=== PATIENT | male | born 1975 | race Caucasian/White ===

== ENCOUNTER 2016-08-22 09:54 | Day surgery (SDC) ==
[2016-08-22] MEDS ORDERED: LR 1,000 ML ONE ×2 (10:43→15:45)
[2016-08-22] MEDS ORDERED: KEFZOL 2 GM/D5W 50 ML ONE (10:44)
[2016-08-22] MEDS ORDERED: DEMEROL ONE (11:52)
[2016-08-22] MEDS ORDERED: PEPCID ONE (11:52)
[2016-08-22] MEDS ORDERED: REGLAN ONE (11:52)
[2016-08-22] MEDS ORDERED: DIPRIVAN 1% ONE (15:22)
[2016-08-22] MEDS ORDERED: XYLOCAINE-MPF 2% ONE (15:23)
[2016-08-22] MEDS ORDERED: ZOFRAN ONE (15:23)
[2016-08-22] MEDS ORDERED: DECADRON ONE (15:23)
[2016-08-22] MEDS: MORPHINE ONE ×2 (15:44→15:49)
[2016-08-22] MEDS ORDERED: PERCOCET-5 ONE (16:10)
[2016-08-22] MEDS ORDERED: PHENERGAN ONE (16:10)
[2016-08-22] MEDS ORDERED: PYRIDIUM ONE ×2 (16:20→16:22)
[2016-08-22 16:41] VITALS: BP 129/92
--- NOTE | 2016-08-25 10:00 | Diag Imaging Result Document ---
PROCEDURE NAME: FLUROSCOPY CYSTO - 08/22/2016 RETROGRADE PYELOGRAM 13 IMAGES: FINDINGS: There is placement of a left ureteral stent by Dr. Smalls. There is evidently a proximal ureteral stone which was removed during the procedure. No contrast was administered. IMPRESSION: Left ureteral stent placement.
--- NOTE | 2016-08-31 19:09 | OPERATIVE NOTE ---
PROCEDURE DATE: 08/22/2016 SURGEON: Rd Smalls MD PREOPERATIVE DIAGNOSES: 1. Left ureteral stone. 2. Hydronephrosis. 3. Flank pain. PRIMARY PROCEDURES: 1. Cystoscopy. 2. Left ureteroscopy. 3. Laser lithotripsy. 4. Stone basket extraction. 5. Placement of 6-Anguillan x 26 cm ureteral stent. INDICATIONS: A 41-year-old male who had presented with ureteral stone. He had significant discomfort, it was read at 3-4 mm. He had partial pain relief with medications and desired definitive intervention. FINDINGS: Obstructing ureteral stone, he had a very narrow ureter, adequate stent placement at conclusion the case, stone was sent off for analysis. DESCRIPTION OF PROCEDURE: After obtaining informed consent, patient brought to the operative room. Perioperative antibiotics and laryngeal mask anesthesia were administered. He was placed in lithotomy position, prepped and draped in sterile fashion. A 21-Anguillan rigid cystoscope was used to gain access to the bladder which was then examined systematic fashion. He had mild bilobar prostatic hypertrophy, his bladder showed no evidence of mucosal lesions , trabeculations, bladder diverticula. We turned attention to left ureteral orifice which was cannulated with a PTFE wire. It was advanced to the level of left renal pelvis. I then introduced the rigid ureteroscope alongside of the wire. His ureteral lumen was very narrow. I was able to visualize the stone with fairly significant mucosal edema surrounding. Holmium laser 273 micron fiber was used to break the stone up into smaller fragments. The larger fragment was removed and sent off for analysis. Repeat ureteroscopy showed no evidence of residual fragments. I was able remove the fragments with a 0 Nitinol basket. During the repeat ureteroscopy I did notice significant ureteral edema and hence we elected to place ureteral stent. Standard fashion a 6-Anguillan x 26 cm ureteral stent was placed over the wire via the cystoscope with proximal coil position confirmed fluoroscopically and distal coil directly visualized. The string was left attached to the stent. The bladder was emptied, cystoscope was removed, he was extubated and taken to PACU for further recovery. ESTIMATED BLOOD LOSS: None. COMPLICATIONS: None. DISPOSITION: To PACU and subsequently home with prescriptions for Topock 10 (10 ), Cipro 500 (10). [facility]
== END 2016-08-22 16:45 | disposition home or self-care (01) ==
LOC: OR 09:54
PROVIDERS: ATTEND Urology
DX: N13.2 Hydronephrosis with renal and ureteral calculous obstruction (principal)
CPT/HCPCS: 76000; 82360; 88300; J0690; J1100; J2175; J2270; J2405; J2550; J7120

== ENCOUNTER 2016-08-26 08:01 | Emergency (ER) ==
[2016-08-26 08:22] LABS: MANUAL DIFF NEEDED? NO
[2016-08-26 08:23] LABS: URINE MICRO REVIEW NEEDED? NO; URINE SOURCE CLEAN CATCH
[2016-08-26] MEDS ORDERED: MORPHINE IV ONE (08:23)
[2016-08-26] MEDS ORDERED: NS 1,000 ML IV ONE (08:23)
[2016-08-26] MEDS ORDERED: ZOFRAN IV ONE (08:23)
[2016-08-26 08:30] LABS: BASO% 0.4 % (0.0-0.8); EOS# 0.12 X1000 (0.0-0.7); EOS% 1.1 % (0.0-10.0); HEMATOCRIT 40.9 % (42.0-52.0); HEMOGLOBIN 14.3 g/dL (14.0-18.0); IMM GRAN# 0.02 X1000 (0.0-0.04); IMM GRAN% 0.2 % (0.0-0.5); LYMPH# 1.02 X1000 (1.2-3.4); MCH 30.4 PG (27-31); MCV 86.8 FL (81-99); MONO# 0.71 X1000 (0.11-0.59); MONO% 6.3 % (1.7-9.3); PLT 260 X1000 (130-400); RBC 4.71 XMIL (4.7-6.1)
[2016-08-26 08:33] LABS: BILIRUBIN URINE NEGATIVE (NEGATIVE); BLOOD URINE LARGE (NEGATIVE); COLOR ORANGE; GLUCOSE URINE NEGATIVE (NEGATIVE); LEUKOCYTES URINE SMALL (NEGATIVE); NITRITE URINE NEGATIVE (NEGATIVE); PROTEIN URINE 100 mg/dL (NEGATIVE); SP GRAVITY URINE 1.013; TURBIDITY URINE CLEAR (CLEAR); UROBILINOGEN URINE NORMAL (NORMAL)
[2016-08-26 08:34] LABS: UR EPITHELIAL CELLS <10 /HPF (<10); URINE BACTERIA NEGATIVE /HPF; URINE CULTURE NEEDED? YES; URINE RBC TNTC /HPF (<10)
[2016-08-26 09:00] LABS: ALBUMIN 3.9 g/dL (3.5-5.0); ALKALINE PHOSPHATASE 88 U/L (32-122); BUN 13 mg/dL (8-22); CALCIUM 9.2 mg/dL (8.8-10.2); GOT 21 U/L (10-34); GPT 20 U/L (10-44); TCO2 24 mmol/L (25-35); TOTAL BILIRUBIN 0.43 mg/dL (0.20-1.00); TOTAL PROTEIN 6.7 g/dL (6.3-8.3)
[2016-08-26 09:11] LABS: CHLORIDE 103 mmol/L (98-107); SODIUM 141 mmol/L (136-145)
[2016-08-26 09:29] LABS: AGAP 14; COSMO 283
--- NOTE | 2016-08-26 10:22 | Diag Imaging Result Document ---
PROCEDURE NAME: ABDOMEN/PELVIS W/WO CONTRAST - 08/26/2016 CT ABDOMEN AND PELVIS WITH AND WITHOUT INTRAVENOUS CONTRAST: COMPARISON: No comparison films. FINDINGS: Noncontrasted images performed. The lower lungs are clear. No right renal stone and no right sided hydronephrosis. There are mild inflammatory changes along the length of the left ureter and there is mild distention to the left ureter. No ureteral stone or renal stone. Normal aorta. No bowel obstruction. Normal appendix. No abscess. Post contrasted images performed. There is a small hiatal hernia. There is fatty infiltration of the liver. Normal spleen, pancreas, gallbladder, and right adrenal gland. A 1.7 cm hypodense nodule is found in the left adrenal gland. No renal masses. There is stool throughout the colon. No free air. The prostate is not enlarged. The urinary bladder is only mildly distended. There is wall thickening along the left urinary bladder at the insertion of the ureter. IMPRESSION: 1. Left periureteral inflammation with mild hydronephrosis and thickening to the left side of the urinary bladder wall, but no calcified stone. 2. Left adrenal nodule. 3. Fatty infiltration of the liver. 4. Small hiatal hernia. 5. Constipation. A preliminary report was given at 10:07 a.m.
[2016-08-26] MEDS ORDERED: ROCEPHIN 1 GM/NS 50 ML IV ONE (10:43)
--- NOTE | 2016-08-26 10:49 | PROVIDER DOCUMENTATION ---
HPI-General Adult - General Chief Complaint: Post Op Complaint Stated Complaint: POST OP COMPLAINT Time Seen by Provider: 08/26/16 08:23 Source: patient, family Allergies/Adverse Reactions: Patient Allergies Allergy/AdvReac Type Severity Reaction Status Date / Time No Known Allergies Allergy Verified 08/26/16 10:32 Home Medications: Home Medication List Medication Instructions Recorded Confirmed Last Taken Type Ciprofloxacin HCl [Cipro] 500 mg PO BID #16 tablet 08/22/16 08/26/16 08/25/16 Rx Hydrocodone/Acetaminophen [Rutledge 1 each PO Q6H PRN PRN #20 tablet 08/22/1608/2608/25/16 Rx 10-325 Tablet] Hydrocodone/Acetaminophen [[place] 1 each PO Q4-6H PRN PRN 08/22/16 08/26/1608/25 History 5-325 Tablet] Losartan Potassium [Cozaar] 100 mg PO DAILY 08/22/16 08/26/16 08/25/16 History Ondansetron Odt [Zofran Odt] 4 mg PO TID PRN #20 tablet 08/22/16 08/26/16 Rx Tamsulosin [Flomax] 0.4 mg PO DAILY 08/22/16 08/26/16 08/25/16 History Zolpidem [Ambien] 10 mg PO QHS 08/22/16 08/26/16 08/25/16 History - History of Present Illness -Gen Adult Nature of Presenting Problems: Reports went to on Thursday had 4mm stone removed had stent put in which pt himself removed stent on Thursday. Pt reports was given norco 10 mg with no relief of pain that is intermittent. reports having luq pain and left flank pain. No BM since thursday. Location of Pain/Injury: reports: abdomen, back Quality of Pain: reports: aching Severity: reports: moderate Onset/Duration: reports: 24 hours ago Timing: reports: still present Similar Symptoms Previously?: Yes Recently seen or treated by another doctor?: Yes Review of Systems - Adult - REVIEW OF SYSTEMS - ADULT Constitutional: denies: chills, fever, fatique Eyes: reports: no symptoms reported Ears, Nose, Mouth & Throat: reports: no symptoms reported Cardiovascular: denies: chest pain, irregular heart rate, orthopnea, syncope Respiratory: reports: no symptoms reported Gastrointestinal: reports: abdominal pain. denies: diarrhea, nausea, poor appetite, vomiting Genitourinary: reports: flank pain. denies: dysuria, discharge, frequency, frequent UTI's, hematuria, hesitency Musculoskeletal: reports: no symptoms reported Integumentary: reports: no symptoms reported Neurological: reports: no symptoms reported Psychiatric: reports: no symptoms reported Endocrine: reports: no symptoms reported Hematologic/Lymphatic: reports: no symptoms reported Allergic/Immunologic: reports: no symptoms reported All Other Systems: Reviewed and Negative Past History - Adult - PAST MEDICAL HISTORY-ADULT Review of Records: reports: Nursing Assessment Review, Medications Reviewed Major Childhood Illnesses: reports: denies history Cardiovascular: reports: HTN - PRIOR SURGERIES/PROCEDURES Surgical/Procedure History: reports: orthopedic (extremity) (rotator cuff) - IMMUNIZATION STATUS Childhood Immunizations: See Nurse Assessment Flu Vaccine: See Nurse Assessment - FAMILY HISTORY Family History: reviewed, not pertinent - SOCIAL HISTORY Smoking: denies Substance Use: alcohol Physical Exam-General - PHYSICAL EXAM-ADULT Initial Vital Signs Reviewed: Yes - CONSTITUTIONAL General Appearance: appears well, alert, no apparent distress - EYES Eyes: PERRL/EOMI - NECK Neck: non-tender, full range of motion, supple, normal inspection - RESPIRATORY Respiratory: chest non-tender, lungs clear, normal breath sounds, no pleuratic chest pain, no respiratory distress, no accessory muscle use - CARDIOVASCULAR Cardiovascular: regular rate, rhythm - GASTROINTESTINAL (ABDOMEN) Abdominal Exam: normal bowel sounds, soft, no organomegaly, no pulsatile mass, tenderness (ttp generalized abd) - MUSCULOSKELETAL Back Exam: no vertebral tenderness, CVA tenderness (left) Extremity: normal range of motion, non-tender - SKIN Integumentary: normal color, normal turgor, warm/dry - PSYCHIATRIC Psych/Mental Status: normal mood/affect, normal thought content, normal thought process, oriented x 3 Progress - PLAN OF CARE/RESULTS Progress/Plan/Lab Results: Orders Category Date Time Status ABDOMEN/PELVIS W/WO CONTRAST [CT] Stat Exams 08/26/16 08:23 Draft CBC WITH ELECTRONIC DIFF [HEME] Stat Lab 08/26/16 08:10 Completed COMPREHENSIVE METABOLIC PANEL [CHEM] Stat Lab 08/26/16 08:10 Completed UA Reflex [URINALYSIS W/POSS RFLX CULT] [URINALYSIS] Lab 08/26/16 08:15 Completed Stat URINE CULTURE [RM] Routine Lab 08/26/16 08:38 Received 0.9% Sodium Chloride Inj [Ns] 1,000 ml Med 08/26/16 08:23 Discontinued IV 999 mls/hr CefTRIAXONE 1 GM/NS [Rocephin 1 gm/Ns] 50 ml Med 08/26/16 10:43 Active IV NOW Morphine Med 08/26/16 08:23 Discontinued 4 mg IV NOW ONE Ondansetron [Zofran] Med 08/26/16 08:23 Discontinued 4 mg IV NOW ONE Vital Signs - 24 hr 08/26/16 08:03 Temperature 98.3 F Pulse Rate 70 Respiratory 20 Rate Blood Pressure 148/86 O2 Sat by Pulse 97 Oximetry Orders Category Date Time Status ABDOMEN/PELVIS W/WO CONTRAST [CT] Stat Exams 08/26/16 08:23 Draft CBC WITH ELECTRONIC DIFF [HEME] Stat Lab 08/26/16 08:10 Completed COMPREHENSIVE METABOLIC PANEL [CHEM] Stat Lab 08/26/16 08:10 Completed UA Reflex [URINALYSIS W/POSS RFLX CULT] [URINALYSIS] Lab 08/26/16 08:15 Completed Stat URINE CULTURE [RM] Routine Lab 08/26/16 08:38 Received 0.9% Sodium Chloride Inj [Ns] 1,000 ml Med 08/26/16 08:23 Discontinued IV 999 mls/hr CefTRIAXONE 1 GM/NS [Rocephin 1 gm/Ns] 50 ml Med 08/26/16 10:43 Active IV NOW Morphine Med 08/26/16 08:23 Discontinued 4 mg IV NOW ONE Ondansetron [Zofran] Med 08/26/16 08:23 Discontinued 4 mg IV NOW ONE Laboratory Tests 08/26/16 08/26/16 08/26/16 08:10 08:10 08:15 WBC 11.35 H RBC 4.71 Hgb 14.3 Hct 40.9 L MCV 86.8 MCH 30.4 MCHC 35.0 RDW Std Deviation 11.8 Plt Count 260 MPV 11.0 H Immature Gran % (Auto) 0.2 Neut % (Auto) 83.0 H Lymph % (Auto) 9.0 L Starke % (Auto) 6.3 Eos % (Auto) 1.1 Baso % (Auto) 0.4 Immature Gran # (Auto) 0.02 Neut # (Auto) 9.44 H Lymph # (Auto) 1.02 L Starke # (Auto) 0.71 H Eos # (Auto) 0.12 Baso # (Auto) 0.04 Sodium 141 Potassium 4.0 Chloride 103 Carbon Dioxide 24 L Anion Gap 14 BUN 13 Creatinine 1.1 Estimated GFR/1.73 m2 > 60 BUN/Creatinine Ratio 12 Glucose 132 H Calculated Osmolality 283 Calcium 9.2 Total Bilirubin 0.43 AST 21 ALT 20 Alkaline Phosphatase 88 Total Protein 6.7 Albumin 3.9 Globulin 2.8 Albumin/Globulin Ratio 1.4 Urine Source CLEAN CATCH Urine Color ORANGE Urine Turbidity CLEAR Urine pH 6.0 Ur Specific Duncan 1.013 Urine Protein 100 A Ur Glucose (Stick) NEGATIVE Ur Ketones (Stick) NEGATIVE Urine Blood LARGE A Urine Nitrite NEGATIVE Urine Bilirubin NEGATIVE Urobilinogen Dipstick NORMAL Urine Leukocytes SMALL A Urine WBC (Auto) 10-20 A Urine RBC (Auto) TNTC A U Epithel Cells (Auto) <10 Urine Bacteria (Auto) NEGATIVE - CT/MRI 1 CT Study: Abdomen, Pelvis Impression: Abnormal (left periureteral inflammation with mild hydronephrosis and thickening to the left side of the urinary bladder wall but no calcified stone. left adrenale node.fatty infiltrattion of the liver. small hiatal hernia. constipaiton) - CONSULTS/PCP/HOSPITALIST Notification #1 *Consult/PCP/Hospitalist*: Time Discussed: 11:47 Consult Disposition: F/U in office Departure - Departure Time of Disposition Order: 11:50 DIAGNOSIS: Post-op pain Disposition: LEFT WITHOUT BEING SEEN 07 Certified Medical Emergency: Emergent Condition: Stable Additional Instructions: Follow up with urologist ED Follow Up Instructions: You have been treated by a care provider in the Emergency Department. These instructions are being provided to you so you can have an understanding of how to care for yourself upon discharge. Upon discharge from the Emergency Department, you are responsible for making arrangements for follow-up care by a physician of your choice. Take all prescribed medications as directed. Return to the Emergency Department immediately for any new or worsening symptoms. You may call the Physician Referral phone number at [phone] to obtain a list of Physicians who are taking new patients. Referrals: None,PCP [Primary Care Provider] - Rd Smalls MD [STAFF PHYSICIAN] - Attestation - Scribe Verification/Attestation Scribe:: Kay De Los Santos Acting as Scribe for:: Stephen Antonio Scribe documention review:: This chart was documented by a scribe and accurately reflects the service the provider performed and the decisions made by the provider. Physician Attestation - Physician Attestation I, the provider, attest to the following statement:: Stephen Antonio Physician documentation Attestation:: This documentation recorded by the scribe accurately reflects the service I personally performed and the decisions made by me.
[2016-08-26] MEDS ORDERED: DILAUDID IV ONE (12:07)
[2016-08-26 12:24] VITALS: BP 138/79
== END 2016-08-26 12:25 | disposition home or self-care (01) ==
LOC: ED 08:01
DX: G89.18 Other acute postprocedural pain (principal); N13.30 Unspecified hydronephrosis; K76.0 Fatty (change of) liver, not elsewhere classified; K44.9 Diaphragmatic hernia without obstruction or gangrene; K59.00 Constipation, unspecified; R10.12 Left upper quadrant pain; R10.9 Unspecified abdominal pain; M54.9 Dorsalgia, unspecified; R10.817 Generalized abdominal tenderness; I10 Essential (primary) hypertension; Z79.899 Other long term (current) drug therapy
CPT/HCPCS: 74178; 80053; 81001; 85025; 87088; J0696; J1170; J2270; J2405; J7030; Q9967